=== PATIENT | male | born 1945 | race Caucasian/White ===

== ENCOUNTER 2018-04-13 09:50 | Inpatient (IN) | payer MEDICARE, MEDICAID ==
[~2018-04-13] VITALS: Ht 170.2 cm; Wt 81.5 kg
[2018-04-13 10:19] LABS: BASOPHILS % (AUTO) 0.4 % (0-1); EOSINOPHILS # (AUTO) 0.1 X10'3 (0-0.9); EOSINOPHILS % (AUTO) 2.3 % (0-6); HEMATOCRIT 39.2 % (42.0-52.0); HEMOGLOBIN 13.4 g/dl (14.0-17.9); LYMPHOCYTES # (AUTO) 2.1 X10'3 (1.1-4.8); LYMPHOCYTES % (AUTO) 38.7 % (21-51); MEAN CORPUSCULAR HEMOGLOBIN 31.3 PG (27.0-31.0); MEAN CORPUSCULAR HGB CONC 34.2 % (33.0-36.5); MEAN CORPUSCULAR VOLUME 91.7 FL (78-98); MEAN PLATELET VOLUME 7.2 FL (7.4-10.4); MONOCYTES # (AUTO) 0.4 X10'3 (0-0.9); MONOCYTES % (AUTO) 7.8 % (2-12); NEUTROPHILS # (AUTO) 2.8 X10'3 (1.8-7.7); NEUTROPHILS % (AUTO) 50.8 % (42-75); PLATELET COUNT 341 X10'3 (140-440); RED BLOOD COUNT 4.27 X10'6 (4.70-6.10); RED CELL DISTRIBUTION WIDTH 13.4 % (11.5-14.5); WHITE BLOOD COUNT 5.4 X10'3 (4.5-11.0)
[2018-04-13 10:34] LABS: ALANINE AMINOTRANSFERASE 31 U/L (12-78); ALBUMIN/GLOBULIN RATIO 1.1 (1.1-1.5); ALKALINE PHOSPHATASE 57 IU/L (46-116); ANION GAP 9 (8-16); ASPARTATE AMINO TRANSFERASE 22 U/L (10-37); BILIRUBIN,TOTAL 0.6 MG/DL (0.1-1.0); BLOOD UREA NITROGEN 26 MG/DL (7-18); BUN/CREATININE RATIO 22.6 (5.4-32.0); CALCIUM 9.6 MG/DL (8.5-10.1); CHLORIDE 102 MMOL/L (99-107); CREATININE 1.15 MG/DL (0.60-1.10); GLUCOSE 102 MG/DL (70-104); POTASSIUM 3.9 MMOL/L (3.5-5.1); SODIUM 140 MMOL/L (135-145); TOTAL CARBON DIOXIDE 28.8 MMOL/L (24-32); TOTAL PROTEIN 7.8 G/DL (6.4-8.2); eGFR 62 ML/MIN
[2018-04-13 10:36] LABS: PARTIAL THROMBOPLASTIN TIME 25 SECONDS (22-32); PROTHROMBIN TIME 10.5 SECONDS (9.0-12.0)
[2018-04-13 10:37] LABS: TROPONIN I < 0.04 NG/ML (0.0-0.05)
[2018-04-13] MEDS ORDERED: acetaminophen 325mg tablet PO PRN ×2 (14:00)
[2018-04-13] MEDS ORDERED: magnesium hydroxide 30ml (MOM) UD suspension PO PRN (14:00)
[2018-04-13] MEDS ORDERED: magnesium 4gm in 100ml NS 100 ML IV PRN (14:00)
[2018-04-13] MEDS ORDERED: ondansetron/PF 4mg/2ml inj IV PRN (14:00)
[2018-04-13] MEDS ORDERED: potassium Cl 40MEQ/NS 500ml 500 ML IV PRN ×2 (14:00)
[2018-04-13] MEDS ORDERED: potassium Cl 20 mEq SR tablet PO PRN ×2 (14:00)
[2018-04-13] MEDS ORDERED: magnesium 1gm/100ml D5W IVPB 100 ML IV PRN (14:00)
[2018-04-13] MEDS ORDERED: aspirin 81mg tab.chew PO ONE (14:10)
[2018-04-13] MEDS: normal saline 1000ml 1,000 ML IV SCH ×2 (15:27→23:57)
[2018-04-13] MEDS ORDERED: TELM1TAB33 PO (15:29)
[2018-04-13] MEDS ORDERED: LOVA20TA2 PO (15:29)
[2018-04-13] MEDS ORDERED: OMEP-50 PO (15:29)
[2018-04-13] MEDS ORDERED: ZOLP5TAB8 PO (15:29)
[2018-04-13] MEDS ORDERED: PRE5T PO (15:29)
[2018-04-13 22:00] VITALS: BP 136/54
[2018-04-14 02:00] VITALS: BP 113/51
[2018-04-14 04:53] LABS: BASOPHILS % (AUTO) 0.6 % (0-1); EOSINOPHILS # (AUTO) 0.2 X10'3 (0-0.9); EOSINOPHILS % (AUTO) 3.5 % (0-6); HEMATOCRIT 35.6 % (42.0-52.0); HEMOGLOBIN 12.2 g/dl (14.0-17.9); LYMPHOCYTES # (AUTO) 2.1 X10'3 (1.1-4.8); LYMPHOCYTES % (AUTO) 34.8 % (21-51); MEAN CORPUSCULAR HEMOGLOBIN 31.2 PG (27.0-31.0); MEAN CORPUSCULAR HGB CONC 34.3 % (33.0-36.5); MEAN CORPUSCULAR VOLUME 90.9 FL (78-98); MEAN PLATELET VOLUME 7.2 FL (7.4-10.4); MONOCYTES # (AUTO) 0.5 X10'3 (0-0.9); MONOCYTES % (AUTO) 8.3 % (2-12); NEUTROPHILS # (AUTO) 3.1 X10'3 (1.8-7.7); NEUTROPHILS % (AUTO) 52.8 % (42-75); PLATELET COUNT 302 X10'3 (140-440); RED BLOOD COUNT 3.92 X10'6 (4.70-6.10); RED CELL DISTRIBUTION WIDTH 13.4 % (11.5-14.5); WHITE BLOOD COUNT 5.9 X10'3 (4.5-11.0)
[2018-04-14 05:55] LABS: ALANINE AMINOTRANSFERASE 31 U/L (12-78); ALBUMIN 3.2 G/DL (3.4-5.0); ALBUMIN/GLOBULIN RATIO 1.1 (1.1-1.5); ALKALINE PHOSPHATASE 45 IU/L (46-116); ANION GAP 8 (8-16); ASPARTATE AMINO TRANSFERASE 16 U/L (10-37); BILIRUBIN,TOTAL 0.5 MG/DL (0.1-1.0); BLOOD UREA NITROGEN 22 MG/DL (7-18); BUN/CREATININE RATIO 18.2 (5.4-32.0); CALCIUM 8.2 MG/DL (8.5-10.1); CHLORIDE 104 MMOL/L (99-107); CHOL/HDL RATIO 4.4 (0.00-4.99); CHOLESTEROL 137 MG/DL (0-200); CREATININE 1.21 MG/DL (0.60-1.10); GLUCOSE 93 MG/DL (70-104); HDL CHOLESTEROL 31 MG/DL (35-60); LDL CHOLESTEROL 87 MG/DL (50-100); MAGNESIUM 1.7 MG/DL (1.5-2.4); POTASSIUM 3.7 MMOL/L (3.5-5.1); SODIUM 140 MMOL/L (135-145); TOTAL CARBON DIOXIDE 28.2 MMOL/L (24-32); TOTAL PROTEIN 6.2 G/DL (6.4-8.2); TRIGLYCERIDES 152 MG/DL (20-135); eGFR 59 ML/MIN
[2018-04-14 06:00] VITALS: BP 126/54
[2018-04-14] MEDS ORDERED: aspirin 325mg tablet, delayed-release (Ecotrin) PO SCH (08:00)
[2018-04-14] MEDS ORDERED: K and/or MAG REPLACEMENT MC SCH (08:00)
[2018-04-14] MEDS ORDERED: atorvastatin 10mg tablet PO SCH (08:00)
[2018-04-14] MEDS: normal saline 1000ml 1,000 ML IV SCH (09:57)
[2018-04-14 10:00] VITALS: BP 141/64
== END 2018-04-14 12:20 | disposition left against medical advice (07) | DRG 66 ==
LOC: ER 09:51 → ED HOLD 13:57 → EDBEDREQ 14:50 → ORTHO 4S 15:45
PROVIDERS: ADMIT Family Medicine; ATTEND Family Medicine
DX: I63.9 Cerebral infarction, unspecified (principal); E78.00 Pure hypercholesterolemia, unspecified; E78.5 Hyperlipidemia, unspecified; I10 Essential (primary) hypertension; Z53.21 Procedure and treatment not carried out due to patient leaving prior to being seen by health care provider; K21.9 Gastro-esophageal reflux disease without esophagitis; Z83.3 Family history of diabetes mellitus; Z87.891 Personal history of nicotine dependence
CPT/HCPCS: 36415; 70450; 70544; 70547; 70551; 71045; 80053; 80061; 82948; 83735; 84484; 85025; 85610; 85730; 87070; 93005; 93306; 93880; 99285; J7030

== ENCOUNTER 2019-04-28 11:28 | Day surgery (SDC) | payer MEDICARE, MEDICAID ==
[2019-04-23 13:06] LABS: BASOPHILS # (AUTO) 0.1 X10'3 (0-0.2); BASOPHILS % (AUTO) 1.2 % (0-1); EOSINOPHILS # (AUTO) 0.2 X10'3 (0-0.9); EOSINOPHILS % (AUTO) 2.9 % (0-6); HEMATOCRIT 35.7 % (42.0-52.0); HEMOGLOBIN 12.3 g/dl (14.0-17.9); LYMPHOCYTES # (AUTO) 2.2 X10'3 (1.1-4.8); LYMPHOCYTES % (AUTO) 30.6 % (21-51); MEAN CORPUSCULAR HEMOGLOBIN 31.9 PG (27.0-31.0); MEAN CORPUSCULAR HGB CONC 34.3 g/dL (33.0-36.5); MEAN CORPUSCULAR VOLUME 92.9 FL (78-98); MEAN PLATELET VOLUME 6.7 FL (7.4-10.4); MONOCYTES # (AUTO) 0.5 X10'3 (0-0.9); MONOCYTES % (AUTO) 7.6 % (2-12); NEUTROPHILS # (AUTO) 4.1 X10'3 (1.8-7.7); NEUTROPHILS % (AUTO) 57.7 % (42-75); PLATELET COUNT 426 X10'3 (140-440); RED BLOOD COUNT 3.85 X10'6 (4.70-6.10)
[2019-04-23 13:16] LABS: PARTIAL THROMBOPLASTIN TIME 25 SECONDS (22-32)
[2019-04-23 13:23] LABS: ALANINE AMINOTRANSFERASE 33 U/L (12-78); ALBUMIN 3.7 G/DL (3.4-5.0); ALBUMIN/GLOBULIN RATIO 0.9 (1.1-1.5); ALKALINE PHOSPHATASE 55 IU/L (46-116); ANION GAP 10 (8-16); ASPARTATE AMINO TRANSFERASE 16 U/L (10-37); BILIRUBIN,TOTAL 0.3 MG/DL (0.1-1.0); BLOOD UREA NITROGEN 21 MG/DL (7-18); BUN/CREATININE RATIO 18.8 (5.4-32.0); CALCIUM 8.9 MG/DL (8.5-10.1); CHLORIDE 104 MMOL/L (99-107); CREATININE 1.12 MG/DL (0.60-1.10); GLUCOSE 93 MG/DL (70-104); POTASSIUM 3.7 MMOL/L (3.5-5.1); SODIUM 143 MMOL/L (135-145); TOTAL CARBON DIOXIDE 28.8 MMOL/L (24-32); TOTAL PROTEIN 7.7 G/DL (6.4-8.2); eGFR 64 ML/MIN
[2019-04-28] VITALS (10 sets, daily range): BP systolic 136–161; BP diastolic 72–81
[~2019-04-28] VITALS: Ht 170.2 cm; Wt 82.0 kg
[~2019-04-28 11:28] MED LIST: LOVA20TA2 PO; OMEP-50 PO; PRE5T PO; TELM1TAB33 PO; ZOLP5TAB8 PO
[2019-04-28] MEDS ORDERED: LORazepam 0.5 MG tablet PO PRN (11:50)
[2019-04-28] MEDS ORDERED: normal saline 1,000 ML IV SCH (11:50)
[2019-04-28] MEDS ORDERED: nitroGLYCERIN 0.4mg SUBLingual tab SL PRN (11:50)
[2019-04-28] MEDS ORDERED: diphenhydrAMINE 25mg capsule PO PRN (11:50)
[2019-04-28] MEDS ORDERED: LIDOcaine 1% (10mg/ml)w/preservative injection 20ml MDV ONE (14:49)
[2019-04-28] MEDS ORDERED: fentaNYL/PF 50MCG/1 ML 2ML syringe ONE (14:49)
[2019-04-28] MEDS ORDERED: midazolam 2 mg/2 ml injection ONE (14:49)
[2019-04-28] MEDS ORDERED: iohexol 350 MG/ML 50ML vial IV ONE (14:50)
[2019-04-28] MEDS ORDERED: heparin 1,000 UNITS/NS 500ml 500 ML ONE ×2 (14:50→14:51)
[2019-04-28] MEDS ORDERED: iohexol 350MG/ML 100ml bottle IV ONE (14:50)
[2019-04-28] MEDS ORDERED: ondansetron/PF 4mg/2ml inj IV PRN (17:35)
[2019-04-28] MEDS ORDERED: HYDROcodone/acetaminophen 5mg/325mg tablet PO PRN (17:35)
[2019-04-28] MEDS ORDERED: OXAZEpam 15mg capsule PO PRN (17:35)
[2019-04-28] MEDS ORDERED: proCHLORperazine 10 MG/2 ml inj IV PRN (17:35)
[2019-04-28] MEDS ORDERED: HYDROcodone/acetaminophen 10/325mg tab PO PRN (17:35)
--- NOTE | 2019-04-28 19:00 | NUR ---
I have received report from Levy ANTOINE and had the opportunity to ask questions.
--- NOTE | 2019-04-28 19:10 | NUR ---
pt arrived on unit with all belongings via [place], at bedside, tele attached, call light in reach, assessed incision site with Levy RN from [facility], no hematoma, no bruising, dressing CDI, weak pulse present in bilat feet, per previous nurse this is the pt's normal, feet are warm with brisk cap refil. discussed the need for pt to remain flat 6 hour post op.
--- NOTE | 2019-04-28 21:50 | NUR ---
pt discharged, pt assessed w/ no hematoma or bruising to incision site no hard spot noted on palpation, wdl pulses in bilat feet, pt ambulated with to their own vehicle. pt took all belongings with him. tele removed and returned to [employer]
== END 2019-04-28 21:50 | disposition home or self-care (01) ==
LOC: SSTAY O 11:28 → PCU 3S 21:10 → UNDOADMOB 21:10 → UNDODISOB 21:50 → SSTAY O 21:50
PROVIDERS: ATTEND Internal Medicine Cardiovascular Disease
DX: R94.39 Abnormal result of other cardiovascular function study (principal); I25.10 Atherosclerotic heart disease of native coronary artery without angina pectoris; I10 Essential (primary) hypertension; E78.5 Hyperlipidemia, unspecified; K21.9 Gastro-esophageal reflux disease without esophagitis; J44.9 Chronic obstructive pulmonary disease, unspecified; Z87.891 Personal history of nicotine dependence; Z79.01 Long term (current) use of anticoagulants; Z79.899 Other long term (current) drug therapy
CPT/HCPCS: 36415; 71046; 80053; 85025; 85610; 85730; 87081; 93005; 93458; 99152; 99153; C1769; J1644; J2001; J2250; J3010; J7030; Q0163; Q9967; A4620; A6258; C1760; G0378

== ENCOUNTER 2020-01-18 08:28 | Emergency (ER) | payer MEDICARE, MEDICAID ==
[~2020-01-18] VITALS: Ht 170.2 cm; Wt 80.5 kg
[2020-01-18] MEDS ORDERED: LIDOcaine 2% 10ml TOPICAL JELLY (Urojet) MM ONE (09:40)
[2020-01-18 09:48] LABS: BASOPHILS % (AUTO) 0.2 % (0-1); EOSINOPHILS % (AUTO) 0.1 % (0-6); HEMATOCRIT 34.1 % (42.0-52.0); HEMOGLOBIN 11.2 g/dl (14.0-17.9); LYMPHOCYTES # (AUTO) 1.5 X10'3 (1.1-4.8); LYMPHOCYTES % (AUTO) 10.1 % (21-51); MEAN CORPUSCULAR HEMOGLOBIN 29.2 PG (27.0-31.0); MEAN CORPUSCULAR HGB CONC 32.8 g/dL (33.0-36.5); MEAN CORPUSCULAR VOLUME 88.9 FL (78-98); MEAN PLATELET VOLUME 7.3 FL (7.4-10.4); MONOCYTES # (AUTO) 1.1 X10'3 (0-0.9); MONOCYTES % (AUTO) 7.3 % (2-12); NEUTROPHILS # (AUTO) 12.1 X10'3 (1.8-7.7); NEUTROPHILS % (AUTO) 82.3 % (42-75); PLATELET COUNT 330 X10'3 (140-440); RED BLOOD COUNT 3.84 X10'6 (4.70-6.10); RED CELL DISTRIBUTION WIDTH 13.9 % (11.5-14.5); WHITE BLOOD COUNT 14.7 X10'3 (4.5-11.0)
[2020-01-18 10:05] LABS: ALANINE AMINOTRANSFERASE 21 U/L (12-78); ALBUMIN 3.7 G/DL (3.4-5.0); ALBUMIN/GLOBULIN RATIO 0.9 (1.1-1.5); ALKALINE PHOSPHATASE 56 IU/L (46-116); ANION GAP 10 (8-16); ASPARTATE AMINO TRANSFERASE 11 U/L (10-37); BILIRUBIN,TOTAL 0.8 MG/DL (0.1-1.0); BLOOD UREA NITROGEN 25 MG/DL (7-18); BUN/CREATININE RATIO 15.4 (5.4-32.0); CALCIUM 9.2 MG/DL (8.5-10.1); CHLORIDE 103 MMOL/L (99-107); CREATININE 1.62 MG/DL (0.60-1.10); GLUCOSE 128 MG/DL (70-104); POTASSIUM 3.8 MMOL/L (3.5-5.1); SODIUM 140 MMOL/L (135-145); TOTAL CARBON DIOXIDE 27.2 MMOL/L (24-32); TOTAL PROTEIN 7.8 G/DL (6.4-8.2); eGFR 42 ML/MIN
[2020-01-18 10:15] LABS: CLARITY,URINE CLOUDY (Clear); COLOR,URINE YELLOW (Yellow); GLUCOSE, URINE NEGATIVE (Neg); KETONES,URINE NEGATIVE (Neg); LEUKOCYTE ESTERASE ,URINE MODERATE (Neg); NITRITES, URINE NEGATIVE (Neg); OCCULT BLOOD,URINE LARGE (Neg); PH,URINE 5.5 (4.8-8.0); PROTEIN,URINE 100 mg/dl (Neg); UROBILINOGEN,URINE 0.2 E.U/dL (0.2-1.0)
[2020-01-18] MEDS ORDERED: normal saline 1000ML IV soln IVB ONE (10:15)
[2020-01-18 10:39] LABS: UA COLLECTION TYPE FOLEY CATH
[2020-01-18 10:42] LABS: MUCUS STRANDS MODERATE /LPF (Neg)
[2020-01-18 10:43] LABS: WBC CLUMPS,URINE MANY /HPF (NEGATIVE); WBC,URINE TNTC /HPF (0-4)
[2020-01-18 10:44] LABS: RBC,URINE 20-50 /HPF (0-2)
[2020-01-18 10:46] LABS: SQUAMOUS EPITHELIAL CELL,UR FEW /LPF (FEW)
[2020-01-18 10:47] LABS: BACTERIA,URINE FEW /HPF (Neg); TRANSITIONAL EPI CELLS,URINE FEW /HPF
[2020-01-18] MEDS ORDERED: CEPH250T PO (10:49)
[2020-01-18 11:42] VITALS: BP 122/64
--- NOTE | 2020-01-18 11:43 | NUR ---
Parikh removed as pt does not need to go home with it.
[2020-01-18] MEDS ORDERED: cephalexin 250mg capsule PO ONE (12:05)
== END 2020-01-18 12:39 | disposition home or self-care (01) ==
LOC: ER 08:29
DX: N39.0 Urinary tract infection, site not specified (principal); E86.0 Dehydration; N28.9 Disorder of kidney and ureter, unspecified; E70.0 Classical phenylketonuria; I10 Essential (primary) hypertension; K21.9 Gastro-esophageal reflux disease without esophagitis; Z79.899 Other long term (current) drug therapy
CPT/HCPCS: 36415; 80053; 81001; 85025; 87088; 87186; 96360; 96361; 99284; J7030; 87077

== ENCOUNTER 2021-03-14 06:43 | Outpatient (CLI) | payer MEDICARE, MEDICAID ==
[~2021-03-14] VITALS: Ht 171.4 cm; Wt 80.7 kg
[~2021-03-14 06:43] MED LIST changes: +TELM1TAB PO; -TELM1TAB33 PO
[2021-03-14 07:41] LABS: ABG BASE EXCESS 1.3 mmol/L (-2.0-2.0); ABG HCO3 25.9 mmol/L (22.0-26.0); ABG OXYGEN SATURATION 94.1 % (94-97); ABG PCO2 (T) 41.2 mmHg (35.0-48.0); ABG PO2 (T) 70.9 mmHg (75.0-100.0); ALLEN'S TEST POSITIVE; FCOHb 0.2 % (0.0-3.9); FO2Hb 93.9 % (94-97); TOTAL HEMOGLOBIN 11.8 G/dl (14.0-18.0)
[2021-03-14] MEDS ORDERED: albuterol 2.5 MG/3 ML nebule NEB ONE (08:10)
== END 2021-03-14 23:59 | disposition home or self-care (01) ==
LOC: RT 06:43
PROVIDERS: ATTEND Internal Medicine Cardiovascular Disease
DX: R06.02 Shortness of breath (principal)
CPT/HCPCS: 36600; 82803; 85018; 94060; 94727; 94729; 94760